=== PATIENT | male | born 1940 | race Caucasian/White ===

== ENCOUNTER 2016-07-23 10:10 | Inpatient (IN) | payer OTHER ==
[2016-07-23 12:54] LABS: % IMMATURE GRANULYOCYTES 0.2 % (0.0-1.1); ABSOLUTE IMMATURE GRANULOCYTES 0.02 10^3/uL (0.00-0.10); ADD DIFF? NO; ADD MORPH? NO; ADD SCAN? NO; ATYPICAL LYMPHOCYTE FLAG 0 (0-99); FRAGMENT RBC FLAG 0 (0-99); HEMATOCRIT 44.4 % (40.0-51.0); HEMOGLOBIN 14.8 g/dL (13.7-17.5); LEFT SHIFT FLG 10 (0-99); LIPEMIA HEMOLYSIS FLAG 80 (0-99); MEAN CELL HEMOGLOBIN 30.8 pg (27.9-34.1); MEAN CELL HEMOGLOBIN CONCENTR. 33.3 g/dL (32.4-36.7); MEAN CELL VOLUME 92.5 fL (81.5-99.8); MEAN PLATELET VOLUME 11.2 fL (8.7-11.7); PLATELET CLUMPS FLAG 0 (0-99); PLATELET COUNT 132 10^3/uL (150-400); RED CELL DISTRIBUTION WIDTH 13.2 % (11.5-15.2)
[2016-07-23 13:01] LABS: ANION GAP 10 mEq/L (8-16); CALCIUM 8.9 mg/dL (8.5-10.4); CARBON DIOXIDE 25 mEq/l (22-31); CHLORIDE 106 mEq/L (97-110); CREATININE 0.8 mg/dL (0.7-1.3); GLOMERULAR FILTRATION RATE > 60; GLUCOSE 130 mg/dL (70-100); POTASSIUM 4.4 mEq/L (3.5-5.2); SODIUM 141 mEq/L (134-144)
[2016-07-23 13:24] LABS: INR 1.06 (0.83-1.16); PROTIME(PATIENT) 13.7 SEC (12.0-15.0)
[2016-07-23 13:25] LABS: APTT 22.4 SEC (23.0-38.0)
[2016-07-23] MEDS ORDERED: ONDANSETRON 4 MG/2 ML VIAL ONE (13:43)
--- NOTE | 2016-07-23 13:55 | EDPHY ---
H & P Stated Complaint: bleeding from penis, on asa - Personal History Current Tetanus/Diphtheria Vaccine: Yes Current Tetanus Diphtheria and Acellular Pertussis (TDAP): Yes - Medical/Surgical History Hx Asthma: No Hx Chronic Respiratory Disease: No Hx Diabetes: No Hx Cardiac Disease: No Hx Renal Disease: No Hx Cirrhosis: No Hx Alcoholism: No Hx HIV/AIDS: No Hx Splenectomy or Spleen Trauma: No Other PMH: rectal prolapse repair 02/16/14. appy , lumbar fusion - Social History Smoking Status: Never smoked HPI/ROS: Chief complaint: Bleeding from penis History of present illness: This is a 75-year-old male with a history of a spinal cord injury who presents to the emergency department for evaluation of bleeding from his penis. Patient reports the onset of symptoms today. He reports passage of bright red blood and clots. It has been persistent. Because of his spinal cord injury patient self caths. He has been doing this for years. He does state over the last few weeks he has noted increasing resistance while cathing himself. He states since the onset of bleeding he has still been able to catheterize himself. Denies associated signs or symptoms including no actual pain with the bleeding, no abdominal discomfort, no history of trauma, no other abnormal bleeding. Review of systems: A 10 point review of systems was obtained and other than described above was negative (Sekou Gutierrez) - Physical Exam Exam: General Appearance: Alert, nontoxic. Eyes: Pupils equal and round no pallor or injection. ENT, Mouth: Mucous membranes moist. Respiratory: There are no retractions, lungs are clear to auscultation. Cardiovascular: Regular rate and rhythm. Gastrointestinal: Abdomen is soft and nontender, no masses, bowel sounds normal. Genitourinary: There is dried blood around the growing with large clots. No active bleeding from the urethral meatus. Neurological: Alert and oriented. Skin: Warm and dry, no rashes. Musculoskeletal: Neck is supple nontender. Patient moving extremities at baseline. Psychiatric: Patient is oriented X 3, there is no agitation. (Sekou Gutierrez) Constitutional: Initial Vital Signs Temperature (C) 36.5 C 07/23/16 10:15 Heart Rate 77 07/23/16 10:15 Respiratory Rate 16 07/23/16 10:15 Blood Pressure 129/75 H 07/23/16 10:15 O2 Sat (%) 98 07/23/16 10:15 O2 Delivery Mode Nasal Cannula O2 (L/minute) 2 Allergies/Adverse Reactions: cephalexin [Cephalexin] Allergy (Verified 07/05/11 11:00) Itching Penicillins Allergy (Verified 07/23/16 19:04) Itching Home Medications: Medication Instructions Recorded Aspirin EC [Aspirin EC 81 mg (*)] 81 mg PO DAILY 07/23/16 Atorvastatin Calcium [Lipitor 10 10 mg PO MOTUWETHFR 07/23/16 mg (*)] Cholecalciferol Vit D3 [Vitamin D3 4,000 units PO DAILY 07/23/16 (*)] Herbals/Supplements -Info Only 1 ea PO DAILY 07/23/16 [place]-3 Fatty Acids [Fish Oil 1000 1,000 mg PO DAILY 07/23/16 mg (*)] Thyroid,Pork [[place] Thyroid] 90 mg PO DAILY 07/23/16 Medical Decision Making - Diagnostics Imaging: Discussed imaging studies w/ shift supervisor melting Radiologist, I viewed and interpreted images myself ED Course/Re-evaluation: 1999: Patient was noted to have an episode of hypotension. I went personally evaluated the patient. He had no complaints of chest pain or shortness of breath. No abdominal pain. Abdomen was soft and nontender. Patient states he had no complaints. His pressure was 85 systolic. I discussed the case with Dr. Reyez who was admitting patient. I informed her of the episodes of hypotension. She felt comfortable with the plan for admission. He was placed in a step-down unit rather than Med surge bed. (Cece Casey) Patient is seen in conjunction with my secondary supervising physician Dr. Ellen Cardenas. Patient presents to the emergency room for bleeding from his urethral meatus. He is nontoxic. Vital signs are stable on presentation. He does self cath. I have consulted with on-call Urology, Dr. Augustin. He recommends a Solares catheter be placed and left in place to allow potential trauma to heal. Patient can follow up in his clinic. This is performed. Patient and critical ocular care technician placed a Solares catheter. Patient is irrigated. The catheter is flowing. Baseline blood studies are unremarkable. While preparing patient to be discharged he started to feel unwell, he developed rigors, nausea and vomiting. Vital signs have gone became unstable. He became febrile, tachycardic and hypotensive. He was given fluid boluses. Imaging studies are obtained and unremarkable other than blood noted in the bladder. Repeat blood studies do show a decrease in H&H. I have reconsulted with Urology, Dr. Augustin. He recommends continuous bladder irrigation. His team will see patient in the morning. Patient will be admitted to the hospitalist service for further evaluation and care. The plan has been discussed with the patient who voiced understanding and agreement with it. ( Sekou Gutierrez) - Data Points Laboratory Results: Laboratory Results 07/23/16 17:35 07/23/16 17:35 Medications Given: Discontinued Medications Acetaminophen (Tylenol) 1,000 mg PO EDNOW ONE Stop: 07/23/16 17:06 Last Admin: 07/23/16 18:52 Dose: Not Given Levofloxacin/Dextrose (Levaquin 750 Mg (Premix)) 150 mls @ 100 mls/hr IV EDNOW ONE PRN Reason: Protocol Stop: 07/23/16 18:40 Last Admin: 07/23/16 18:52 Dose: 150 mls Sodium Chloride (Ns) 500 mls @ 0 mls/hr IV ONCE ONE PRN Reason: Wide Open Stop: 07/23/16 20:13 Last Admin: 07/23/16 20:00 Dose: 500 mls Sodium Chloride (Ns) 1,000 mls @ 3,000 mls/hr IV ONCE ONE Stop: 07/23/16 22:09 Last Admin: 07/23/16 22:15 Dose: 1,000 mls Sodium Chloride (Ns) 1,000 mls @ 3,000 mls/hr IV ONCE ONE Stop: 07/23/16 22:12 Last Admin: 07/23/16 23:13 Dose: 1,000 mls Sodium Chloride (Ns) 1,000 mls @ 3,000 mls/hr IV ONCE ONE Stop: 07/23/16 22:13 Last Admin: 07/24/16 02:46 Dose: Not Given Sodium Chloride (Ns) 500 mls @ 0 mls/hr IV ONCE ONE PRN Reason: Wide Open Stop: 07/24/16 02:46 Last Admin: 07/24/16 02:45 Dose: 500 mls Sodium Chloride (Ns) 500 mls @ 0 mls/hr IV ONCE ONE PRN Reason: Wide Open Stop: 07/24/16 07:01 Last Admin: 07/24/16 06:53 Dose: 500 mls Nitrofurantoin Macrocrystals (Macrobid) 100 mg PO EDNOW ONE PRN Reason: Protocol Stop: 07/23/16 15:59 Last Admin: 07/23/16 18:38 Dose: Not Given Departure - Departure Disposition: [facility] Acute Clinical Impression: Penile bleeding, UTI (urinary tract infection) Condition: Fair
[2016-07-23 15:41] LABS: COLOR RED; LEUKOCYTE ESTERASE,URINE TRACE (NEGATIVE); NITRITE,URINE NEGATIVE (NEGATIVE)
[2016-07-23 15:54] LABS: RBC,URINE 50-182 /hpf (0-3); WBC,URINE 15-25 /hpf (0-3)
[2016-07-23] MEDS ORDERED: ACETAMINOPHEN 500 MG TAB PO ONE (17:05)
[2016-07-23] MEDS ORDERED: IOPAMIDOL (ISOVUE-300) 100 ML BTL ONE (17:10)
[2016-07-23 18:08] LABS: % IMMATURE GRANULYOCYTES 0.3 % (0.0-1.1); ABSOLUTE IMMATURE GRANULOCYTES 0.02 10^3/uL (0.00-0.10); ADD DIFF? NO; ADD MORPH? NO; ADD SCAN? YES; ATYPICAL LYMPHOCYTE FLAG 0 (0-99); FRAGMENT RBC FLAG 0 (0-99); HEMATOCRIT 34.7 % (40.0-51.0); HEMOGLOBIN 11.8 g/dL (13.7-17.5); LIPEMIA HEMOLYSIS FLAG 90 (0-99); MEAN CELL HEMOGLOBIN 31.5 pg (27.9-34.1); MEAN CELL VOLUME 92.5 fL (81.5-99.8); PLATELET CLUMPS FLAG 20 (0-99); PLATELET COUNT 87 10^3/uL (150-400); RED BLOOD CELL COUNT 3.75 10^6/uL (4.40-6.38); RED CELL DISTRIBUTION WIDTH 13.3 % (11.5-15.2)
[2016-07-23 18:12] LABS: INR 1.24 (0.83-1.16); PROTIME(PATIENT) 15.6 SEC (12.0-15.0)
[2016-07-23 18:13] LABS: APTT 24.4 SEC (23.0-38.0); LEFT SHIFT FLG 260 (0-99)
[2016-07-23 18:15] LABS: ANION GAP 6 mEq/L (8-16); BILIRUBIN,TOTAL 0.8 mg/dL (0.1-1.4); CALCIUM 7.7 mg/dL (8.5-10.4); CARBON DIOXIDE 24 mEq/l (22-31); CHLORIDE 108 mEq/L (97-110); CREATININE 0.8 mg/dL (0.7-1.3); GLOMERULAR FILTRATION RATE > 60; GLUCOSE 113 mg/dL (70-100); POTASSIUM 3.5 mEq/L (3.5-5.2); SODIUM 138 mEq/L (134-144)
[2016-07-23] MEDS ORDERED: LIDOCAINE 2% JELLY 20 ML (UROJECT) ONE (18:27)
[2016-07-23] MEDS ORDERED: NITROFURANTOIN MACROBID 100 MG CAP PO ONE (18:27)
[2016-07-23] MEDS: NITROFURANTOIN MACROBID 100 MG CAP PO ONE ×2 (18:32→18:38)
[2016-07-23 18:37] LABS: SCAN POSITIVE
[2016-07-23 18:43] LABS: PLATELET ESTIMATE DECREASED (ADEQ)
[2016-07-23] MEDS ORDERED: ONDANSETRON DISINTEGRATING 4 MG TAB PO PRN (19:05)
[2016-07-23] MEDS ORDERED: ONDANSETRON 4 MG/2 ML VIAL IVP PRN (19:05)
[2016-07-23] MEDS ORDERED: HYDROCODONE/APAP 5/325 TAB PO PRN (19:05)
[2016-07-23] MEDS ORDERED: NS 500 ML IV ONE (20:12)
[2016-07-23] MEDS: NS 1,000 ML IV SCH (20:34)
[2016-07-23] MEDS: ATORVASTATIN CALCIUM 10 MG TAB PO SCH (21:28)
[2016-07-23] MEDS: ACETAMINOPHEN 325 MG TAB PO PRN (21:29)
[2016-07-23] MEDS ORDERED: NS 1,000 ML IV ONE ×2 (21:50→21:53)
[2016-07-24] MEDS: NS 1,000 ML IV ONE ×2 (01:04→02:46)
[2016-07-24] MEDS ORDERED: NS BOLUS 500 ML (Wide open) IV ONE ×2 (02:45→07:00)
[2016-07-24 04:12] LABS: HEMATOCRIT 31.6 % (40.0-51.0); HEMOGLOBIN 10.5 g/dL (13.7-17.5)
[2016-07-24] MEDS: NS 1,000 ML IV SCH ×2 (04:39→12:36)
[2016-07-24 06:15] LABS: ABSOLUTE IMMATURE GRANULOCYTES 0.12 10^3/uL (0.00-0.10); ADD DIFF? NO; ADD MORPH? NO; ADD SCAN? YES; ATYPICAL LYMPHOCYTE FLAG 0 (0-99); FRAGMENT RBC FLAG 0 (0-99); HEMATOCRIT 32.5 % (40.0-51.0); LIPEMIA HEMOLYSIS FLAG 90 (0-99); MEAN CELL HEMOGLOBIN 30.8 pg (27.9-34.1); MEAN CELL HEMOGLOBIN CONCENTR. 33.8 g/dL (32.4-36.7); MEAN PLATELET VOLUME 11.1 fL (8.7-11.7); PLATELET CLUMPS FLAG 10 (0-99); PLATELET COUNT 71 10^3/uL (150-400); RED BLOOD CELL COUNT 3.57 10^6/uL (4.40-6.38); RED CELL DISTRIBUTION WIDTH 13.6 % (11.5-15.2)
[2016-07-24 06:23] LABS: LEFT SHIFT FLG 300 (0-99)
[2016-07-24 06:59] LABS: SCAN POSITIVE
[2016-07-24 07:03] LABS: PLATELET ESTIMATE DECREASED (ADEQ)
[2016-07-24 07:11] LABS: ANION GAP 7 mEq/L (8-16); CALCIUM 7.2 mg/dL (8.5-10.4); CARBON DIOXIDE 22 mEq/l (22-31); CHLORIDE 113 mEq/L (97-110); CREATININE 0.8 mg/dL (0.7-1.3); GLOMERULAR FILTRATION RATE > 60; GLUCOSE 113 mg/dL (70-100); POTASSIUM 3.9 mEq/L (3.5-5.2); SODIUM 142 mEq/L (134-144)
[2016-07-24] MEDS ORDERED: ALTEPLASE 2 MG VIAL IVP PRN (07:51)
[2016-07-24] MEDS ORDERED: Herbals/Supplements -Info Only PO SCH (09:00)
[2016-07-24] MEDS: THYROID 60 MG TAB PO SCH (09:07)
[2016-07-24] MEDS: CHOLECALCIFEROL VIT D3 2,000 UNITS TAB/CAP PO SCH (09:07)
[2016-07-24] MEDS: OMEGA-3 FATTY ACIDS 1,000 MG CAP PO SCH (09:07)
[2016-07-24] MEDS: ASPIRIN EC 81 MG TAB PO SCH (09:07)
--- NOTE | 2016-07-24 11:04 | HOSPPROG ---
Hospitalist Progress Note Assessment/Plan: #Sepsis: due to urinary source. Added urine cx. Blood cx NGTD. Levaquin with PCN -allergy #Hematuria: large bladder hematoma. Patient has been self-cathing for years. Clearing with continuous irrigation. Urology to evaluate #Hypotension: sepsis +/- blood loss. Baseline BP 110/70 (2013 per review prior admissions) #h/o spinal cord injury #Hypothyroidism: [place] #Diet: regular #DVT ppx: SCDs #Disp: warrants inpt admission with hypotension, hematuria. cont IVFs, bladder irrigation Subjective: dizziness resolved. Objective: Vital Signs Temp Pulse Resp BP Pulse Ox 36.7 C 80 20 105/46 L 98 07/24/16 08:00 07/24/16 10:00 07/24/16 10:00 07/24/16 10:00 07/24/16 10:00 Laboratory Results 07/24/16 05:00 07/23/16 07/24/16 07/25/16 05:59 05:59 05:59 Intake Total 4361 Output Total 2700 Balance 1661 PT 15.6 SEC (12.0-15.0) H 07/23/16 17:35 INR 1.24 (0.83-1.16) H 07/23/16 17:35 - Physical Exam Constitutional: no apparent distress Eyes: PERRL Ears, Nose, Mouth, Throat: moist mucous membranes, hearing normal Cardiovascular: regular rate and rhythym, no murmur, rub, or gallop Respiratory: no respiratory distress, no rales or rhonchi Gastrointestinal: normoactive bowel sounds, soft, non-tender abdomen Genitourinary: cardona in urethra (with pink urine) Skin: warm Musculoskeletal: full muscle strength Neurologic: AAOx3 Psychiatric: interacting appropriately ICD10 Worksheet Patient Problems: Problems Problem Status Onset Penile bleeding Acute UTI (urinary tract infection) Acute
[2016-07-24 14:58] LABS: HEMATOCRIT 32.4 % (40.0-51.0); HEMOGLOBIN 10.9 g/dL (13.7-17.5)
--- NOTE | 2016-07-24 17:59 | SOAPPROG ---
SOAP Progress Note Assessment/Plan: Assessment: 1. Gross hematuria w/ clot urinary retention - due to urethral trauma from CIC - improved on CBI. 2. Probable neurogenic bladder w/ chronic retention - requires CIC 4-5 times daily. Does not void between CIC. Plan: 1. Continue CBI tonight. Will d/c in AM but continue indwelling Solares. 2. Pt. will need to be discharged w/ current indwelling Solares x 5 days to allow urethral trauma time to heal. 3. No obvious need for continued antibiotics as admission UA was fairly clear. 4. He will FU in my office next week. See full consult note (# [id number]). Subjective: No complaints. Objective: Vital Signs Temp Pulse Resp BP Pulse Ox 37.1 C 79 20 108/50 L 94 07/24/16 16:00 07/24/16 16:00 07/24/16 16:00 07/24/16 16:00 07/24/16 16:00 Laboratory Results 07/24/16 14:40 07/24/16 05:00 07/23/16 07/24/16 07/25/16 05:59 05:59 05:59 Intake Total 4361 Output Total 2700 Balance 1661 PT 15.6 SEC (12.0-15.0) H 07/23/16 17:35 INR 1.24 (0.83-1.16) H 07/23/16 17:35 ICD10 Worksheet Patient Problems: Problems Problem Status Onset Penile bleeding Acute UTI (urinary tract infection) Acute
[2016-07-24] MEDS: ACETAMINOPHEN 325 MG TAB PO PRN (20:38)
[2016-07-24] MEDS: ATORVASTATIN CALCIUM 10 MG TAB PO SCH (20:38)
--- NOTE | 2016-07-24 21:49 | GCON ---
[f rep st] CONSULTATION UROLOGY CONSULTATION NOTE DATE OF CONSULTATION: 07/23/2016 REFERRING PHYSICIAN: Hospitalist Service REASON FOR CONSULTATION: Gross hematuria with clot, urinary retention. HISTORY: This is a 75-year-old gentleman who has been performing clean intermittent catheterization chronically since 2003 roughly 4-5 times daily. When he attempted to catheterize himself yesterday morning, he had significant gross hematuria with difficulty advancing the catheter into the bladder. He continued to have gross hematuria to the point that he presented to the emergency room about 5 hours later. He was evaluated in the emergency room and eventually admitted when found to have significant gross hematuria that required continuous irrigation. The patient has been doing well since admission. He denies any problems at this time. He states when he was up earlier and attempting to have a bowel movement, he did expel a number of clots through the catheter, but the urine has been relatively clear since then. He denies any prior history of significant difficulties with catheterization. He does not void between catheterizations. He denies any fevers, nor flu-like symptoms prior to presentation to the ER. His past urologic history is also remarkable for kidney stones at age 27, and he did undergo negative prostate biopsies about [address] Iniguez, presumably for an elevated PSA at that time. He has not seen urologist in at least 2-3 years. PAST MEDICAL HISTORY: Notable for L1 spinal cord injury secondary to burst fracture from a 15 foot fall in 2003, hypothyroidism, history of hyperparathyroidism, osteopenia. PAST SURGICAL HISTORY: Includes parathyroidectomy in June 2011, T11-L3 fusion with hardware in 2003, rectal prolapse repair. MEDICATIONS: At admission include Lipitor 10 mg daily, [place] Thyroid 90 mg daily, baby aspirin, vitamin D3. ALLERGIES: Both penicillin and cephalexin cause itching. FAMILY HISTORY: Noncontributory. SOCIAL HISTORY: The patient and his Ese live in the [place] area. He denies use of tobacco products and consumes alcohol occasionally. REVIEW OF SYSTEMS: Notable for chronic constipation, which is aided with ambulation. He does have some pelvic and lower extremity chronic weakness and paresthesias related to his spinal cord injury. Otherwise, negative other than mentioned above in the HPI and past medical history. PHYSICAL EXAM: GENERAL: Well-developed, well-nourished white male, lying supine in bed in no acute distress presently. VITAL SIGNS: Blood pressure 108/ 50, pulse 79, respirations 20, temperature 37.1 Celsius, oxygen saturation is 94 % on room. HEENT: Normocephalic, atraumatic. NECK: Supple. HEART: Regular rate. CHEST: Unlabored respiratory pattern. ABDOMEN: Soft without palpable masses, nor obvious organomegaly. Right lower quadrant surgical scar is noted. Bladder is not distended in the lower midline. GENITALIA: A 24-[place] 3-way Solares catheter currently in place draining clear urine on minimal rate CBI. Scrotal structures and penis are otherwise normal. EXTREMITIES: Warm without cyanosis, clubbing, nor edema. VASCULAR: Normal femoral, dorsalis pedis, and posterior tibial pulses bilaterally. NEUROLOGIC: He is alert and oriented. He answers all questions appropriately with normal mood and affect. RADIOGRAPHIC STUDIES: 07/23/[address] scan: Upon my review, notable for multiple bilateral simple renal cysts, 10 x 4.5 mm left lower pole, 3 mm left mid pole, 2 mm right upper pole, and 2.5 mm right lower pole renal calculi noted without hydronephrosis, nor hydroureter. No ureteral, nor bladder calculi appreciated. Solares catheter is in place with small amount of clot alongside the catheter in the bladder. There also appears to be an enlarged prostate. LABORATORY: Admission urinalysis is notable for 50-182 red blood cells and 15- 25 white blood cells per high powered field, but otherwise negative. 2016 chemistry panel is normal. 07/23/2016 INR is unremarkable, and hemoglobin and hematocrit today are stable relative to early this morning and yesterday at 1735. Platelet count is 71,000 from this morning, which compares to 132,000 on 07/23. 06/2016 PSA 6.69, compared to 7.58 in 05/2014, 10.5 in 07/2013, 7.6 in 04/2011. IMPRESSION: 1. Gross hematuria clotting with urinary retention secondary to urethral trauma from unsuccessful self- catheterization. Significantly improved on continuous irrigation. 2. Probable neurogenic bladder with long-standing urinary retention and need for intermittent catheterization. 3. Bilateral asymptomatic nephrolithiasis. 4. Elevated PSA: Chronic and stable. Most likely secondary to benign prostatic hypertrophy. RECOMMENDATIONS: 1. Continue CBI this evening. Will discontinue early tomorrow morning, but maintain indwelling Solares catheter for about the next 5 days to allow for urethral trauma healing. 2. If the urine remains clear tomorrow following discontinuation of irrigation , the patient may be discharged from my standpoint. Instructions will be placed on the chart for the patient to be instructed on how to remove his Solares catheter in about 5 days. He will then follow up in my office sometime next week. 3. Based on admission urinalysis findings, I do not see the need to continue antibiotics following discharge. 4. He will also ultimately undergo office cystoscopy in about 1 month to evaluate the bladder and urethral residual trauma and/or bladder pathology. Thank you for this consultation. /[id number]/MODL MTDD
--- NOTE | 2016-07-24 23:44 | GCON ---
[f rep st] CONSULTATION CRITICAL CARE CONSULTATION DATE OF CONSULTATION: 07/24/2016 HISTORY OF PRESENT ILLNESS: The patient is a 75-year-old male with history of spinal cord injury in the past, who has been doing self-catheterizations for many years. He developed passing bright red blood and clots via his penis and was trying to apply pressure, and this did not seem to help. It is a persistent issue and was seen in the emergency department where he was found to have what appea red to be blood in his bladder, and initially he was going to be sent home, but then developed rigor s and hypotension and was therefore admitted to the intensive care unit. He was given Levaquin, and cultures were drawn. His lactates have been normal, and his blood pressure seemed to respond to IV fluids. REVIEW OF SYSTEMS: Otherwise negative. PAST MEDICAL HISTORY: Includes spinal cord injury as described above. He does have small amount of sensation below his waist. Hypothyroidism. PAST SURGICAL HISTORY: Includes rectal prolapse repair, appendectomy, and lumbar fusion. SOCIAL HISTORY: He is a nonsmoker. No alcohol or IV drug use. FAMILY HISTORY: Noncontributory. ALLERGIES: Include cephalexin and penicillins. HOME MEDICATIONS: Include only aspirin, atorvastatin, vitamin D3, omega-3, and [place] Thyroid. PHYSICAL EXAMINATION: VITAL SIGNS: His blood pressure this morning 100/47, heart rate of 81, respi rations 23, oxygen saturation 96% on room air. GENERAL: He was awake and alert and oriented x3, in no apparent distress. Able to speak in full sentences without using accessory muscles for breathin g. HEENT: Pupils equally round and reactive to light. Nonicteric and noninjected. Mucous membran es are moist without erythema or exudate. NECK: Supple without adenopathy or jugular vein distenti on. LUNGS: Breath sounds were clear to auscultation bilaterally without wheeze or rales. HEART: Regular rate and rhythm without murmurs, rubs, or gallops. ABDOMEN: Soft, nontender, nondistended without hepatosplenomegaly. EXTREMITIES: Show no clubbing, cyanosis, or edema. NEUROLOGIC: He avina d no activity in his lower extremities but was otherwise nonfocal. OBJECTIVE DATA: Includes his white count was 5.8 on admission yesterday; today it is still pending at this time. His basic metabolic panel was fairly unremarkable including creatinine of 0.8. His u rinalysis showed a lot of red cells but 15-25 white cells and 2+ protein but no ketones, nitrites, b ut did have trace of leukocyte esterase. Blood cultures were drawn and are pending at this time. ASSESSMENT/PLAN: 1. Hematuria from self-catheterization that is probably traumatic in nature. I believe Urology has already been consulted. He is getting continuous bladder irrigations and is starting to clear at t his time. There was some discussion of potential mass in the bladder. I think this is unlikely and more likely to be blood. Urology will continue to follow that. 2. Hypotension with some rigors and with concern about infection, though his blood pressure respond ed well to IV fluids. Cultures are negative. Ceftriaxone may be a better antibiotic for urinary so urce at this time until cultures are otherwise drawn. Otherwise, he appears to be quite stable, and I will continue to follow. /[id number]/MODL
[2016-07-25 04:38] VITALS: RESP 14
[2016-07-25 04:51] LABS: HEMATOCRIT 31.9 % (40.0-51.0); HEMOGLOBIN 10.6 g/dL (13.7-17.5); MEAN CELL HEMOGLOBIN 31.2 pg (27.9-34.1); MEAN CELL HEMOGLOBIN CONCENTR. 33.2 g/dL (32.4-36.7); MEAN CELL VOLUME 93.8 fL (81.5-99.8); RED BLOOD CELL COUNT 3.4 10^6/uL (4.40-6.38)
[2016-07-25 05:06] LABS: ANION GAP 3 mEq/L (8-16); CALCIUM 7.3 mg/dL (8.5-10.4); CARBON DIOXIDE 25 mEq/l (22-31); CHLORIDE 113 mEq/L (97-110); CREATININE 0.7 mg/dL (0.7-1.3); GLOMERULAR FILTRATION RATE > 60; GLUCOSE 111 mg/dL (70-100); POTASSIUM 3.9 mEq/L (3.5-5.2); SODIUM 141 mEq/L (134-144)
[2016-07-25 07:46] VITALS: BP 115/69; PULSE 65; TEMP 98.2; O2SAT 99
[2016-07-25] MEDS: CHOLECALCIFEROL VIT D3 2,000 UNITS TAB/CAP PO SCH (08:38)
[2016-07-25] MEDS: ASPIRIN EC 81 MG TAB PO SCH (08:38)
[2016-07-25] MEDS: OMEGA-3 FATTY ACIDS 1,000 MG CAP PO SCH (08:38)
[2016-07-25] MEDS: THYROID 60 MG TAB PO SCH (08:38)
--- NOTE | 2016-07-25 11:26 | GDS ---
[f rep st] DISCHARGE SUMMARY DISCHARGE DIAGNOSES: 1. Gross hematuria. 2. Hypotension. 3. Neurogenic bladder secondary to back injury. 4. Elevated prostate-specific antigen. 5. History of spinal cord injury. 6. Hypothyroidism. 7. Possible sepsis. HISTORY OF PRESENT ILLNESS: The patient is a 75-year-old male with a history of a burst fracture years ago with subsequent spinal cord injury and neurogenic bladder. He has been self-catheterizing for greater than 10 years. When he attempted to catheterize on day of admission, he had a significant amount of gross hematuria and difficulty advancing the catheter. He was initially going to be discharged from the emergency room. However, then developed hypotension, and was admitted to the ICU. He denies any fevers, chills, or sweats. No fevers, chills. Did note bladder spasm a couple of days prior to admission. HOSPITAL COURSE BY PROBLEM: 1. Gross hematuria: bladder hematoma due to self-catheterization. Urology was consulted placed on continuous irrigation. Urine now clear. Continue Solares for 5 days and cystoscopy in 1 month. Patient to follow up with Dr. Montemayor with Urology. 2. Hypotension: Secondary to dehydration and blood loss. Few whites on UA. Empirically treated with antibiotics, but cultures remain negative. 3. Hypothyroidism: Continue [place]. 4. Sepsis: Suspect urinary source. There were only a few white cells on UA, but patient was febrile with hypotension. Will continue Levaquin given a penicillin allergy. DISPOSITION: Patient is stable for discharge. MEDICATIONS: New medications: Levaquin. FOLLOWUP: 1. Dr. Montemayor. 2. Keep Solares in until followup next week. 3. Cystoscopy in 1 month per Urology. /[id number]/MODL MTDD
--- NOTE | 2016-07-25 18:46 | GHP ---
[f rep st] HISTORY AND PHYSICAL DATE OF ADMISSION: 07/23/2016 This is a history and physical being redictated for a lost dictation from 07/23/2016, to replace the original history and physical dictated on the patient's admission date. CHIEF COMPLAINT: Hematuria. HISTORY OF PRESENT ILLNESS: A 75-year-old male with a history of spinal cord injury, who self caths 5 times a day, presented after developing gross hematuria in the outpatient setting. The patient d escribes having a forceful catheterization experience and subsequent hematuria. Patient had large vo lumes of blood and, therefore, presented to the emergency department. Describes in the ED not havin g subjective fevers or chills at home. Denied abdominal discomfort. Originally with a catheterizin g incident but then developed fullness in his abdomen. Patient denied any chest pain, any shortness of breath, any dizziness, any palpitations. Denied any preceding hematuria or complications with hi s self cathing. Patient developed rigors after having Solares catheter placement in the emergency department, as well as drops in his blood pressure and, therefore, is being admitted to the hospital for monitoring and stabilization. PAST MEDICAL HISTORY: 1. Spinal cord injury. 2. Chronic self catheterization. 3. Hypothyroidism. SOCIAL HISTORY: Negative for tobacco. Rare alcohol. No illicit drugs or marijuana. FAMILY HISTORY: Positive for hypothyroidism. ADVANCED DIRECTIVES: The patient wishes to be full core, full tube. His would be his medical decision maker. REVIEW OF SYSTEMS: A 10-point review of systems is negative with the exception of that reported in the HPI. PHYSICAL EXAMINATION: VITAL SIGNS: On the day of hospitalization, the patient's blood pressure is 80/52, heart rate 92, respiratory rate 90, febrile at 101. GENERAL: This is a healthy-appearing, mi ddle-aged male. HEENT: Notable for moist mucous membranes. Eyes are negative for any icterus. CAR DIAC: Patient is tachycardic but regular. PULMONARY: No rales or rhonchi. GASTROINTESTINAL: Posit christi bowel sounds. ABDOMEN: Soft and nontender. MUSCULOSKELETAL: Negative for any lower extremity edema. GENITOURINARY: Solares catheter is in place with hematuria. NEUROLOGIC: He is alert and johnathan ented x3. PSYCHIATRIC: He is pleasant and cooperative on interview and examination. DATA: White count is 5.8. Creatinine is 0.7. CT of the abdomen, which I personally reviewed and i nterpreted, showed a large hematoma in the urinary bladder with minimal left-sided hydronephrosis. ASSESSMENT AND PLAN: This is a 75-year-old male developing rigors after urinary instrumentation. 1. Sepsis. Patient is presenting with tachycardia, fever. Presumed source is genitourinary from in strumentation. Patient is being initiated on IV levofloxacin, getting aggressive IV fluid resuscitat ion and monitoring. 2. Rigors. Suspect that the patient is developing sepsis-type symptoms related to instrumentation of his genitourinary system. Will empirically treated as a sepsis patient as he does meet criteria. Will aggressively fluid resuscitate, initiate empiric antibiotics, obtain blood cultures and monitor the patient closely. 3. Hypotension. Again, suspect this is sepsis physiology. Will fluid resuscitate first. The patient does not have central access and would need some place for pressor support. We are hopeful we can support his blood pressures without any pressors. 4. Hypothyroidism. Can continue his home medications without change. 5. Prophylaxis. Lovenox is contraindicated in setting of hematuria. 6. Diet. Regular. DISPOSITION: I expect in less than 2 midnights that the patient's hemodynamics improve with fluid a nd antibiotic support. I have discussed the case with the emergency room physician. Urology will b e called and patient will be treated with empiric antibiotics. /[id number]/MODL
== END 2016-07-25 11:10 | disposition home or self-care (01) | DRG 872 ==
LOC: F2N 20:22
PROVIDERS: ADMIT Hospitalist; ATTEND Hospitalist
PROC: 02HV33Z Insertion of Infusion Device into Superior Vena Cava, Percutaneous Approach (ICD-10-PCS; principal; 2016-07-24)
DX: A41.9 Sepsis, unspecified organism (principal); R31.9 Hematuria, unspecified; K59.09 Other constipation; E21.3 Hyperparathyroidism, unspecified; Z98.1 Arthrodesis status; Z87.442 Personal history of urinary calculi; Z79.82 Long term (current) use of aspirin
CPT/HCPCS: 82947-QW; 96374; C1751; J1956; J2405; Q9967

== ENCOUNTER → 2017-08-27 | Outpatient (CLI) | payer OTHER | LOC: FIMAGING 09:12 | PROVIDERS: ATTEND Specialist | DX: N20.0 Calculus of kidney (principal) ==

== ENCOUNTER → 2018-08-25 | Outpatient (CLI) | payer OTHER | LOC: FIMAGING 11:19 ==